=== PATIENT | female | born 1950 | race Caucasian/White ===

== ENCOUNTER 2023-05-06 06:43 | Day surgery (SDC) | payer MEDICARE, OTHER ==
--- NOTE | 2023-05-05 13:32 | HP ---
DATE OF SURGERY: 05/06/2023 HISTORY OF PRESENT ILLNESS: The patient is a 72-year-old female presents with epigastric pain. She also has possible cecal lesion. She has been having some constipation. She had a small bowel follow through that is where they may have seen some lesion at the cecum. She presents for endoscopy. PAST MEDICAL HISTORY: Anxiety. Depression. Gastroesophageal reflux disease. Hypertension. PAST SURGICAL HISTORY: Cataract. Sinus. Skin cancer. Total abdominal hysterectomy bilateral salpingo-oophorectomy. ALLERGIES: PER THE CHART. MEDICATIONS: Xanax, carvedilol, aspirin, Tricor, Dexilant. FAMILY HISTORY: None reported. SOCIAL HISTORY: None reported. REVIEW OF SYSTEMS: CONSTITUTIONAL: Denies fever or chills. CHEST: Denies shortness of breath. CVS: Denies chest pain. ABDOMEN: Denies abdominal pain. PHYSICAL EXAMINATION: GENERAL: No acute distress. CHEST: Nonlabored. No shortness of breath. CVS: Regular rate and rhythm. ABDOMEN: Soft. IMPRESSION: Abnormal small bowel follow through with possible cecal lesion and epigastric pain. PLAN: EGD and colonoscopy with Dr. Richmond Reene. As dictated by Cande Murrieta NP.
[2023-05-06] MEDS ORDERED: Lactated Ringers 1,000 ML IV SCH (07:00)
[2023-05-06] MEDS ORDERED: Lactated Ringers 1,000 ML IV ONE (07:21)
[2023-05-06 07:23] VITALS: O2SAT 100
[2023-05-06] MEDS ORDERED: Xylocaine-Mpf 2% 5 Ml Vial ONE (08:59)
[2023-05-06] MEDS ORDERED: Versed 2 MG/2 ML Injection ONE (08:59)
[2023-05-06] MEDS ORDERED: DIPRIVAN 200 MG/20 ML IV ONE (08:59)
[2023-05-06] MEDS ORDERED: Zofran 4 MG/2 ML VIAL ONE (09:01)
[2023-05-06 10:19] VITALS: BP 142/75; PULSE 47
--- NOTE | 2023-05-06 11:01 | OP ---
SURGERY DATE/TIME: 05/06/2023 0905 PREOPERATIVE DIAGNOSES: 1) Anemia. 2) Epigastric pain. POSTOPERATIVE DIAGNOSES: 1) Grade 2 gastroesophageal reflux disease. 2) Mild acute gastritis. 3) She had a normal ascending colon and cecum. 4) She had severe sigmoid diverticulosis. 5) She had moderate internal hemorrhoids. 6) She had no mucosal lesions. PROCEDURES: 1) EGD with cold biopsy. 2) Colonoscopy complete to cecum with no biopsy. SURGEON: Richmond Renee M.D. ANESTHESIA: MAC. COMPLICATIONS: None. CONDITION: Stable. DESCRIPTION OF PROCEDURE: Taken to endoscopy. MAC sedation. Time out performed. Scope introduced. Pharyngoesophageal junction normal. Esophagus normal down to gastroesophageal junction. Grade 2 over 4 gastroesophageal reflux disease. No hiatal hernia. Fundus, body and antrum acute gastritis mild. Cold biopsy of antrum. Pylorus normal. Duodenal bulb normal. Second portion normal. Scope looped upon itself normal. Scope withdrawn. Anal digital examination satisfactory. Scope advanced to the cecum. The ascending colon and cecum was fairly long. It was well defined. Appendiceal orifice was normal. Ileocecal valve was normal. Base of cecum normal. Ascending colon normal. There was a small bowel follow through that had suggested there might be a lesion over on this side that clearly is not. Great care and patience and time was spent on this area. Hepatic flexure, transverse colon, descending colon normal. There is severe sigmoid diverticulosis. Rectum satisfactory. Anus moderate hemorrhoids. The patient tolerated the procedure satisfactory. Follow up in five years.
== END 2023-05-06 10:49 | disposition home or self-care (01) ==
LOC: SDC 06:43
PROVIDERS: ATTEND Surgery
DX: K21.9 Gastro-esophageal reflux disease without esophagitis (principal); D64.9 Anemia, unspecified; R10.13 Epigastric pain; K29.70 Gastritis, unspecified, without bleeding; K57.30 Diverticulosis of large intestine without perforation or abscess without bleeding; K64.8 Other hemorrhoids; Z85.828 Personal history of other malignant neoplasm of skin
CPT/HCPCS: 99100; J2250; J2405; J2704

== ENCOUNTER 2023-11-01 09:14 | Emergency (ER) | payer MEDICARE, OTHER ==
[2023-11-01] MEDS ORDERED: Sodium Chloride 0.9% 1000 ML 1,000 ML IV SCH (09:30)
[2023-11-01] MEDS ORDERED: Sodium Chloride 0.9% 1000 ML 1,000 ML ONE (10:07)
[2023-11-01 10:10] VITALS: TEMP 98.2
--- NOTE | 2023-11-01 10:19 | XRAY ---
Indication: Hematuria. Frequent and painful urination. Multiple contiguous axial images obtained through the abdomen and pelvis without contrast using renal stone protocol. Comparison: April 19, 2014. Lung bases not demonstrates minimal fibrosis/scarring. No infiltrate or effusion. Heart not enlarged. No renal calculus or evidence for obstructive uropathy in either system. Stable left mid renal cortical scarring with new underlying punctate calcification. Stable left extrarenal pelvis. Noncontrasted stomach and bowel loops are nonobstructed. There is now mild diffuse scattered colonic fecal debris throughout including rectum. Again scattered descending and sigmoid diverticulosis without diverticulitis. Interval cholecystectomy with stable hysterectomy. No free fluid/air. Remaining liver, pancreas, spleen, adrenal glands, kidneys, ureters, and bladder are unremarkable for noncontrast exam. Worsening mild scattered arteriosclerotic calcifications with stable 9 mm calcified splenic artery aneurysm. No AAA. Osseous structures intact with osteopenia and mild degenerative changes throughout thoracolumbar spine and both hips. Impression: 1. Continued negative renal calculus or evidence for obstructive uropathy. 2. New mild diffuse fecal stasis. 3. Chronic findings including left renal cortical scarring with punctate calcification, colonic diverticulosis, arteriosclerotic disease with small calcified splenic artery aneurysm, and chronic bony findings.
[2023-11-01 10:24] LABS: Absolute Neutrophil Ct (ANC) 4.94 x10^3/uL (1.4-6.9); BASOPHIL % 0.3 % (0.0-0.4); Basophil (Absolute #) 0.02 x10^3/uL (0-0.4); Eosinophil % 0.5 % (0.00-5.0); Eosinophil (Absolute #) 0.03 x10^3/uL (0-0.5); Hematocrit 37.6 % (35-47); Hemoglobin 12.3 g/dL (12.0-16.0); IMMATURE GRAN # 0.02 x10^3u/L (0.00-0.03); IMMATURE GRAN % 0.3 % (0.00-0.4); Lymphocyte (Absolute #) 0.69 x10^3/uL (1.0-4.6); Mean Cell Volume 93.5 fL (78-100); Mean Corpuscular Hemoglobin 30.6 pg (26-32); Mean Corpuscular Hgb Concent. 32.7 g/dL (32-36); Mean Platelet Volume 10.2 fL (7.5-11.0); Monocyte (Absolute #) 0.55 x10^3/uL (0.0-1.3); Monocytes % 8.8 % (0.0-12.0); Neutrophil % 79.1 % (36.0-66.0); Platelet Count 167 x10^3/uL (150-450); Red Blood Count 4.02 x10^6/uL (4.1-5.4); Red Cell Distribution Width 12.6 % (11.5-14.0); White Blood Count 6.3 x10^3/uL (4.0-10.5)
[2023-11-01 10:25] VITALS: RESP 16
[2023-11-01 10:36] LABS: ALBUMIN 4.3 g/dL (3.5-5.0); ANION GAP 10.5 MEQ/L (5-15); BILIRUBIN,TOTAL 0.7 mg/dL (0.2-1.3); Calcium 9.4 mg/dL (8.4-10.2); Creatinine 1 0.62 mg/dL (0.52-1.04); EST GLOMERULAR FILTRATION RATE 94.6 ML/MIN; Potassium 3.8 mmol/L (3.5-5.1); Total Protein 7.3 g/dL (6.3-8.2)
[2023-11-01 10:39] LABS: INR 1.05 (0.8-3.0); PROTIME 11.4 SECONDS (9.4-12.5); PTT 27.8 SECONDS (25.1-36.5)
--- NOTE | 2023-11-01 10:58 | ERPHSYRPT ---
- History of Present Illness Time Seen by Provider: 11/01/23 10:53 Source: patient Exam Limitations: no limitations Patient Subjective Stated Complaint: Pt states "I woke up this morning and had to pee and when I did it was pure blood." Triage Nursing Assessment: Pt presented alert and oriented X 3, skin pwd. Pt ambulates with an upright steady gait, able to speak in clear full sentences. Pt resting comfortably on the bed. Physician History: Patient is a 72-year-old white female very pleasant who presents with a com plaint of gross hematuria present when she awoke this morning. She did have pain with the passage of clots but at the present time is fairly comfortable and the bleeding seems to be decreasing. There is no history of any genitourinary problems in the past. Timing/Duration: today Activites at Onset: none Quality: pressure Severity of Pain-Max: moderate Severity of Pain-Current: none Prior abdominal problems: none Allergies/Adverse Reactions: amlodipine Allergy (Unknown, Verified 05/06/23 07:09) atorvastatin [From Lipitor] Allergy (Unknown, Verified 05/06/23 07:09) ciprofloxacin [From Cipro] Allergy (Unknown, Verified 05/06/23 07:09) dicyclomine Allergy (Unknown, Verified 05/06/23 07:09) erythromycin base Allergy (Unknown, Verified 05/06/23 07:09) isosorbide [From Imdur] Allergy (Unknown, Verified 05/06/23 07:09) naproxen [From Aleve] Allergy (Unknown, Verified 05/06/23 07:09) niacin Allergy (Unknown, Verified 05/06/23 07:09) Home Medications: Aspirin 81 mg PO DAILY 04/19/14 [History] Fenofibrate Nanocrystallized [Tricor] 48 mg PO DAILY 04/19/14 [History] ALPRAZolam 0.25 MG [xanAX 0.25 MG] 0.25 mg PO HS 04/22/23 [History] Carvedilol 3.125 mg [Coreg 3.125 MG] 6.25 mg PO BID 04/22/23 [History] Nitroglycerin 0.4 mg Tablet [Nitrostat 0.4 MG Tablet] 0.4 mg PO DAILY PRN PRN 04/22/23 [History] Sertraline HCl 50 mg [Zoloft 50 mg Tablet] 12.5 mg PO DAILY 04/22/23 [History] Sucralfate 1 gm [Carafate 1 GM] 1 tab PO UD 04/22/23 [History] polyethylene glycoL 3350 [Miralax Powder] 1 dose PO DAILY PRN PRN 04/22/23 [History] Dexlansoprazole [Dexilant] 60 mg PO DAILY 05/06/23 [History] Hx Tetanus, Diphtheria Vaccination/Date Given: Yes Hx Influenza Vaccination/Date Given: No Hx Pneumococcal Vaccination/Date Given: No Travel Risk - International Travel Have you traveled outside of the country in past 3 weeks: No - Coronavirus Screening Are you exhibiting any of the following symptoms?: No Close contact with a COVID-19 positive Pt in past 14-21 Days: No - Vaccine Status Have you recieved a Covid-19 vaccination: Yes 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[employer] - Vaccination Dates Date of 2cond Vaccination (if applicable): 2020 - Review of Systems Constitutional: No Fever, No Chills Eyes: No Symptoms Ears, Nose, & Throat: No Symptoms Respiratory: No Cough, No Dyspnea Cardiac: No Chest Pain, No Edema, No Syncope Abdominal/Gastrointestinal: No Abdominal Pain, No Nausea, No Vomiting, No Diarrhea Genitourinary Symptoms: Frequency, Hematuria, No Dysuria Musculoskeletal: No Back Pain, No Neck Pain Skin: No Rash Neurological: No Dizziness, No Focal Weakness, No Sensory Changes Psychological: No Symptoms Endocrine: No Symptoms All Other Systems: Reviewed and Negative - Past Medical History Pertinent Past Medical History: Yes Neurological History: No Pertinent History ENT History: No Pertinent History Cardiac History: Coronary Artery Disease, High Cholesterol, Hypertension Respiratory History: No Pertinent History Endocrine Medical History: No Pertinent History Musculoskeletal History: No Pertinent History GI Medical History: GERD Psycho-Social History: Anxiety Female Reproductive Disorders: No Pertinent History - Past Surgical History Past Surgical History: Yes Neuro Surgical History: No Pertinent History Cardiac: No Pertinent History Respiratory: No Pertinent History Gastrointestinal: Cholecystectomy Genitourinary: No Pertinent History Female Surgical History: Hysterectomy Other Surgical History: CYSTOCELE LEFT LYMPH NODE REMOVED - Social History Smoking Status: Never smoker Exposure to second hand smoke: No Drug Use: none Patient Lives Alone: No - Nursing Vital Signs Nursing Vital Signs: Initial Vital Signs Temperature 98.2 F 11/01/23 09:25 Pulse Rate 61 11/01/23 09:25 Respiratory Rate 20 11/01/23 09:25 Blood Pressure 182/95 11/01/23 09:25 O2 Sat by Pulse Oximetry 100 11/01/23 09:25 Pain Scale Pain Intensity 5 - Physical Exam General Appearance: mild distress, alert Eye Exam: PERRL/EOMI, eyes nml inspection Ears, Nose, Throat Exam: normal ENT inspection, TMs normal, pharynx normal, moist mucous membranes Neck Exam: normal inspection, non-tender, supple, full range of motion Respiratory Exam: normal breath sounds, lungs clear, No respiratory distress Cardiovascular Exam: regular rate/rhythm, normal heart sounds, normal peripheral pulses Gastrointestinal/Abdomen Exam: soft, No tenderness, No mass Back Exam: normal inspection, normal range of motion, No CVA tenderness, No vertebral tenderness Extremity Exam: normal inspection, normal range of motion, pelvis stable Neurologic Exam: alert, oriented x 3, 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, 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, normal mood/affect, sensation nml, No motor deficits Skin Exam: normal color, warm, dry Lymphatic Exam: No adenopathy SpO2: 98 - Course Nursing assessment & vital signs reviewed: Yes - CT Exams Abdomen/Pelvis CT Interpretation: Negative Ordered Tests: Active Orders 24 hr Category Date Time Status IV Insertion STAT Care 11/01/23 09:27 Active ABDOMEN AND PELVIS W/0 CONTRAS [CT] Stat Exams 11/01/23 09:28 Completed AMYLASE Stat Lab 11/01/23 10:20 Completed CBC W DIFF Stat Lab 11/01/23 10:20 Completed CMP Stat Lab 11/01/23 10:20 Completed LIPASE Stat Lab 11/01/23 10:20 Completed Lactic Acid Stat Lab 11/01/23 10:18 Completed PROTIME WITH INR Stat Lab 11/01/23 10:20 Completed PTT Stat Lab 11/01/23 10:20 Completed UA W/RFX UR CULTURE Stat Lab 11/01/23 09:42 Received Medication Summary Generic Name Dose Route Start Last Admin Trade Name Freq PRN Reason Stop Dose Admin Sodium Chloride 1,000 mls @ 100 mls/hr 11/01/23 09:30 11/01/23 10:09 Sodium Chloride 0.9% 1000 Ml IV 12/01/23 09:29 100 mls/hr .Q10H ANASTASIIA Administration Lab/Rad Data: Laboratory Result Diagrams 11/01/23 10:20 11/01/23 10:20 Laboratory Results 11/01/23 11/01/23 11/01/23 Range/Units 10:20 10:20 10:20 WBC 6.3 (4.0-10.5) x10^3/uL RBC 4.02 L (4.1-5.4) x10^6/uL Hgb 12.3 (12.0-16.0) g/dL Hct 37.6 (35-47) % MCV 93.5 (78-100) fL MCH 30.6 (26-32) pg MCHC 32.7 (32-36) g/dL RDW 12.6 (11.5-14.0) % Plt Count 167 (150-450) x10^3/uL MPV 10.2 (7.5-11.0) fL Gran % 79.1 H (36.0-66.0) % Immature Gran % (Auto) 0.3 (0.00-0.4) % Nucleat RBC Rel Count 0.0 (0.00-0.1) % Eos # (Auto) 0.03 (0-0.5) x10^3/uL Immature Gran # (Auto) 0.02 (0.00-0.03) x10^3u/L Absolute Lymphs (auto) 0.69 L (1.0-4.6) x10^3/uL Absolute Monos (auto) 0.55 (0.0-1.3) x10^3/uL Absolute Nucleated RBC 0.00 (0.00-0.01) x10^3u/L Lymphocytes % 11.0 L (24.0-44.0) % Monocytes % 8.8 (0.0-12.0) % Eosinophils % 0.5 (0.00-5.0) % Basophils % 0.3 (0.0-0.4) % Absolute Granulocytes 4.94 (1.4-6.9) x10^3/uL Basophils # 0.02 (0-0.4) x10^3/uL PT 11.4 (9.4-12.5) SECONDS INR 1.05 (0.8-3.0) APTT 27.8 (25.1-36.5) SECONDS Sodium 135 L (137-145) mmol/L Potassium 3.8 (3.5-5.1) mmol/L Chloride 101 (98-107) mmol/L Carbon Dioxide 28 (22-30) mmol/L Anion Gap 10.5 (5-15) MEQ/L BUN 19 H (7-17) mg/dL Creatinine 0.62 (0.52-1.04) mg/dL Estimated GFR 94.6 ML/MIN Glucose 90 (74-106) mg/dL Lactic Acid (0.4-2.0) Calcium 9.4 (8.4-10.2) mg/dL Total Bilirubin 0.70 (0.2-1.3) mg/dL AST 36 (14-36) U/L ALT 24 (0-35) U/L Alkaline Phosphatase 75 (38-126) U/L Serum Total Protein 7.3 (6.3-8.2) g/dL Albumin 4.3 (3.5-5.0) g/dL Amylase 109 (30-110) U/L Lipase 266 (23-300) U/L 11/01/23 Range/Units 10:18 WBC (4.0-10.5) x10^3/uL RBC (4.1-5.4) x10^6/uL Hgb (12.0-16.0) g/dL Hct (35-47) % MCV (78-100) fL MCH (26-32) pg MCHC (32-36) g/dL RDW (11.5-14.0) % Plt Count (150-450) x10^3/uL MPV (7.5-11.0) fL Gran % (36.0-66.0) % Immature Gran % (Auto) (0.00-0.4) % Nucleat RBC Rel Count (0.00-0.1) % Eos # (Auto) (0-0.5) x10^3/uL Immature Gran # (Auto) (0.00-0.03) x10^3u/L Absolute Lymphs (auto) (1.0-4.6) x10^3/uL Absolute Monos (auto) (0.0-1.3) x10^3/uL Absolute Nucleated RBC (0.00-0.01) x10^3u/L Lymphocytes % (24.0-44.0) % Monocytes % (0.0-12.0) % Eosinophils % (0.00-5.0) % Basophils % (0.0-0.4) % Absolute Granulocytes (1.4-6.9) x10^3/uL Basophils # (0-0.4) x10^3/uL PT (9.4-12.5) SECONDS INR (0.8-3.0) APTT (25.1-36.5) SECONDS Sodium (137-145) mmol/L Potassium (3.5-5.1) mmol/L Chloride (98-107) mmol/L Carbon Dioxide (22-30) mmol/L Anion Gap (5-15) MEQ/L BUN (7-17) mg/dL Creatinine (0.52-1.04) mg/dL Estimated GFR ML/MIN Glucose (74-106) mg/dL Lactic Acid 0.5 (0.4-2.0) Calcium (8.4-10.2) mg/dL Total Bilirubin (0.2-1.3) mg/dL AST (14-36) U/L ALT (0-35) U/L Alkaline Phosphatase (38-126) U/L Serum Total Protein (6.3-8.2) g/dL Albumin (3.5-5.0) g/dL Amylase (30-110) U/L Lipase (23-300) U/L - Progress Progress: improved Air Movement: good Progress Note: 11/01/23 10:57 After workup failed to reveal an exact cause for her gross hematuria we discus sed it with her she wants to see her primary care physician and let that physician arrange referral for her to urology. Blood Culture(s) Obtained: No Antibiotics given: No Counseled pt/family regarding: lab results, rad results Medical Desision Making - Diagnostic Testing Diagnostic test were ordered, analyzed, and reviewed by me: Yes Radiological Interpretation: Reviewed by me - Risk of complications Low Risk: Low risk of morbidity from additional dx testing or treatment - Departure Departure Disposition: Home Clinical Impression: Gross hematuria Condition: Stable Critical Care Time: No Referrals: RUBI GRAHAM [Primary Care Provider] - Follow up/PCP as directed Instructions: Blood in the urine (hematuria) in adults
[2023-11-01 11:05] VITALS: BP 144/73; PULSE 52; O2SAT 96
[2023-11-01 11:08] LABS: Appearance Turbid (Clear); Bacteria None Seen /HPF (None Seen); Bilirubin Large (Negative); Blood Moderate (Negative); Epithelial Cells Rare /HPF (None Seen); Glucose, Urine Negative (Negative); Hyaline Casts NONE SEEN /LPF (0-2); Leukocyte Esterase Large (Negative); Nitrite Positive (Negative); Ph 6.5 (4.6-8.0); Protein,Urine Dip 100 (Negative); Urobilinogen 0.2 mg/dL (0.2); WBC >100 /HPF (0-5)
[2023-11-01 11:18] LABS: RBC >100 /HPF (0-5)
[2023-11-01 11:19] LABS: ADD URINE CULTURE? YES (NO)
== END 2023-11-01 11:10 | disposition home or self-care (01) ==
LOC: ED 09:14
DX: R31.0 Gross hematuria (principal); E78.5 Hyperlipidemia, unspecified; I10 Essential (primary) hypertension; Z79.899 Other long term (current) drug therapy
CPT/HCPCS: 36415; 74176; 80053; 81001; 82150; 83605; 83690; 85025; 85610; 85730; 87077; 87086; 87186; 99284

== ENCOUNTER 2024-03-09 10:46 | Emergency (ER) | payer MEDICARE, OTHER ==
[2024-03-09 11:04] VITALS: TEMP 96.8
--- NOTE | 2024-03-09 11:05 | ERPHSYRPT ---
- History of Present Illness Time Seen by Provider: 03/09/24 11:05 Source: patient, family, EMS, old records Exam Limitations: no limitations Patient Subjective Stated Complaint: Syncope Triage Nursing Assessment: Patient brought into ED per EMS and transferred to bed with assist of 2. Patient A +O X 3. Patient's skin pink, warm and dry. Patient states prior to coming to ED she had a syncopal episode but did not lose consciousness or hit head. Patient states she has been dizzy and nauseated since yesterday when she started a Zpack for a tooth. Patient denies pain or discomfort. Physician History: This is a cachectic appearing 73-year-old white female patient who was brought to the emergency department by the ambulance service because of a syncopal episode. Patient denies hitting her head. Patient states she felt dizzy yesterday and has been nauseated over the last couple days secondary to being placed on a Z-Jairon to treat a dental infection. Today, she actually was dizzy and fell somewhat to the ground. Patient does have a history of coronary artery disease, hypertension, anxiety issues, hyperlipidemia and gastroesophageal reflux disease. She is on a beta-justin. She has known history of sinus b radycardia. She also has noticed the left occipital region of her scalp has been somewhat tender intermittently over the last couple of weeks. She has never had a syncopal episode in the past per her report. She does not have chest pain. She is not short of breath. She has no abdominal pain. She has had chronic weight loss secondary to epigastric abdominal pain after eating so she states that she is on pured and bland foods. She is scheduled for an upper and lower endoscopy in approximately 1 week's time. Witnessed: by family Prior Episodes: single episode today Timing/Duration: yesterday Precipitating Factors: unknown, other (She had associated nausea) Context: standing Loss of Consciousness: no loss of consciousness Charcter of event(s): felt faint Allergies/Adverse Reactions: amlodipine Allergy (Unknown, Verified 03/09/24 10:50) atorvastatin [From Lipitor] Allergy (Unknown, Verified 03/09/24 10:50) ciprofloxacin [From Cipro] Allergy (Unknown, Verified 03/09/24 10:50) dicyclomine Allergy (Unknown, Verified 03/09/24 10:50) erythromycin base Allergy (Unknown, Verified 03/09/24 10:50) isosorbide [From Imdur] Allergy (Unknown, Verified 03/09/24 10:50) naproxen [From Aleve] Allergy (Unknown, Verified 03/09/24 10:50) niacin Allergy (Unknown, Verified 03/09/24 10:50) nitrofurantoin [From Macrobid] Allergy (Verified 03/09/24 10:51) azithromycin Adverse Reaction (Verified 03/09/24 10:52) Patient states dizziness Home Medications: Aspirin 81 mg PO DAILY 04/19/14 [History] Fenofibrate Nanocrystallized [Tricor] 48 mg PO DAILY 04/19/14 [History] ALPRAZolam 0.25 MG [xanAX 0.25 MG] 0.25 mg PO HS 04/22/23 [History] Carvedilol 3.125 mg [Coreg 3.125 MG] 6.25 mg PO BID 04/22/23 [History] Nitroglycerin 0.4 mg Tablet [Nitrostat 0.4 MG Tablet] 0.4 mg PO DAILY PRN PRN 04/22/23 [History] Sertraline HCl 50 mg [Zoloft 50 mg Tablet] 12.5 mg PO DAILY 04/22/23 [History] Sucralfate 1 gm [Carafate 1 GM] 1 tab PO UD 04/22/23 [History] polyethylene glycoL 3350 [Miralax Powder] 1 dose PO DAILY PRN PRN 04/22/23 [History] Dexlansoprazole [Dexilant] 60 mg PO DAILY 05/06/23 [History] Hx Tetanus, Diphtheria Vaccination/Date Given: Yes Hx Influenza Vaccination/Date Given: Yes Hx Pneumococcal Vaccination/Date Given: Yes Immunizations Up to Date: Yes Travel Risk - International Travel Have you traveled outside of the country in past 3 weeks: No - Emerging Infectious Disease Are you exhibiting symptoms associated with any current EIDs: No - Past Medical History Pertinent Past Medical History: Yes Neurological History: No Pertinent History ENT History: No Pertinent History Cardiac History: Coronary Artery Disease, High Cholesterol, Hypertension Respiratory History: No Pertinent History Endocrine Medical History: No Pertinent History Musculoskeletal History: No Pertinent History GI Medical History: GERD Psycho-Social History: Anxiety Female Reproductive Disorders: No Pertinent History - Past Surgical History Past Surgical History: Yes Neuro Surgical History: No Pertinent History Cardiac: No Pertinent History Respiratory: No Pertinent History Gastrointestinal: Cholecystectomy Genitourinary: No Pertinent History Female Surgical History: Hysterectomy Other Surgical History: CYSTOCELE LEFT LYMPH NODE REMOVED - Social History Smoking Status: Never smoker Exposure to second hand smoke: No Drug Use: none Patient Lives Alone: No - Review of Systems Constitutional: Weakness Eyes: No Symptoms Ears, Nose, & Throat: No Symptoms Respiratory: No Symptoms Cardiac: No Symptoms Abdominal/Gastrointestinal: No Symptoms Genitourinary Symptoms: No Symptoms Musculoskeletal: No Symptoms Skin: No Symptoms Neurological: Dizziness Psychological: No Symptoms Endocrine: No Symptoms Hematologic/Lymphatic: No Symptoms Immunological/Allergic: No Symptoms All Other Systems: Reviewed and Negative Physical Exam - Nursing Vital Signs Nursing Vital Signs: Initial Vital Signs Temperature 96.8 F 03/09/24 10:52 Pulse Rate 55 L 03/09/24 10:52 Respiratory Rate 14 03/09/24 10:52 Blood Pressure 130/77 03/09/24 10:52 O2 Sat by Pulse Oximetry 99 03/09/24 10:52 Pain Scale Pain Intensity 0 - Sonia Coma Scale Best Eye Response ([place]): (4) open spontaneously Best Verbal Response ([place]): (5) oriented Best Motor Response ([place]): (6) obeys commands Sonia Total: 15 - Physical Exam General Appearance: no apparent distress, alert, anxiety, cachetic Eye Exam: bilateral eye: normal inspection, PERRL, EOMI Ears, Nose, Throat Exam: normal ENT inspection, moist mucous membranes Neck Exam: normal inspection, non-tender, supple, full range of motion Respiratory: normal breath sounds, lungs clear, airway intact, No chest tenderness, No respiratory distress Cardiovascular: bradycardia Gastrointestinal: soft, normal bowel sounds, No tenderness Pelvic Exam: not done Rectal Exam: not done Back Exam: normal inspection, normal range of motion, No CVA tenderness, No vertebral tenderness Extremity Exam: normal inspection, normal range of motion, pelvis stable Mental Status: alert, 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 No comparison twelve-lead EKG available) Ordered Tests: Active Orders 24 hr Category Date Time Status EKG-ER Only STAT Care 03/09/24 11:17 Active IV Insertion STAT Care 03/09/24 11:17 Active Pulse Oximetry (ED) STAT Care 03/09/24 11:17 Active HEAD WITHOUT CONTRAST [CT] Stat Exams 03/09/24 11:21 Completed CBC W DIFF Stat Lab 03/09/24 11:45 Completed CMP Stat Lab 03/09/24 11:45 Completed MAGNESIUM Stat Lab 03/09/24 11:45 Completed TROPONIN Q4H Lab 03/09/24 11:45 Completed TROPONIN Q4H Lab 03/09/24 15:30 Ordered TROPONIN Q4H Lab 03/09/24 19:30 Ordered TSH, 3RD Generation Stat Lab 03/09/24 11:45 Completed UA W/RFX UR CULTURE Stat Lab 03/09/24 11:25 Completed Medication Summary Generic Name Dose Route Start Last Admin Trade Name Freq PRN Reason Stop Dose Admin Sodium Chloride 1,000 mls @ 100 mls/hr 03/09/24 11:30 03/09/24 11:27 Sodium Chloride 0.9% 1000 Ml IV 04/08/24 11:29 100 mls/hr .Q10H ANASTASIIA Administration Lab/Rad Data: Laboratory Result Diagrams 03/09/24 11:45 03/09/24 11:45 Laboratory Results 03/09/24 03/09/24 03/09/24 Range/Units 11:45 11:45 11:45 WBC (4.0-10.5) x10^3/uL RBC (4.1-5.4) x10^6/uL Hgb (12.0-16.0) g/dL Hct (35-47) % MCV (78-100) fL MCH (26-32) pg MCHC (32-36) g/dL RDW (11.5-14.0) % Plt Count (150-450) x10^3/uL MPV (7.5-11.0) fL Gran % (36.0-66.0) % Immature Gran % (Auto) (0.00-0.4) % Nucleat RBC Rel Count (0.00-0.1) % Eos # (Auto) (0-0.5) x10^3/uL Immature Gran # (Auto) (0.00-0.03) x10^3u/L Absolute Lymphs (auto) (1.0-4.6) x10^3/uL Absolute Monos (auto) (0.0-1.3) x10^3/uL Absolute Nucleated RBC (0.00-0.01) x10^3u/L Lymphocytes % (24.0-44.0) % Monocytes % (0.0-12.0) % Eosinophils % (0.00-5.0) % Basophils % (0.0-0.4) % Absolute Granulocytes (1.4-6.9) x10^3/uL Basophils # (0-0.4) x10^3/uL Sodium 130 L (135-145) mmol/L Potassium 3.8 (3.5-5.1) mmol/L Chloride 103 (98-107) mmol/L Carbon Dioxide 20 L (22-30) mmol/L Anion Gap 11.7 (5-15) MEQ/L BUN 14 (7-17) mg/dL Creatinine 0.60 (0.52-1.04) mg/dL Estimated GFR 94.7 ML/MIN Glucose 106 (74-106) mg/dL Calcium 9.0 (8.4-10.2) mg/dL Magnesium 1.7 (1.6-2.3) mg/dL Total Bilirubin 0.20 (0.2-1.3) mg/dL AST 33 (14-36) U/L ALT 20 (0-35) U/L Alkaline Phosphatase 57 (38-126) U/L Troponin I < 0.012 (0.000-0.033) ng/mL Serum Total Protein 6.4 (6.3-8.2) g/dL Albumin 3.7 (3.5-5.0) g/dL Free T4 1.33 (0.78-2.19) ng/dL TSH 3rd Generation 1.380 (0.470-4.680) mIU/L Urine Color (Yellow) Urine Appearance (Clear) Urine pH (4.6-8.0) Ur Specific [place] (1.005-1.030) Urine Protein (Negative) Urine Glucose (UA) (Negative) mg/dL Urine Ketones (Negative) Urine Blood (Negative) Urine Nitrite (Negative) Urine Bilirubin (Negative) Urine Urobilinogen (0.2) mg/dL Ur Leukocyte Esterase (Negative) U Hyaline Cast (Auto) (0-2) /LPF Urine Microscopic RBC (0-5) /HPF Urine Microscopic WBC (0-5) /HPF Ur Epithelial Cells (None Seen) /HPF Urine Bacteria (None Seen) /HPF Urine Culture Reflexed (NO) 03/09/24 03/09/24 Range/Units 11:45 11:25 WBC 3.1 L (4.0-10.5) x10^3/uL RBC 3.63 L (4.1-5.4) x10^6/uL Hgb 11.1 L (12.0-16.0) g/dL Hct 32.7 L (35-47) % MCV 90.1 (78-100) fL MCH 30.6 (26-32) pg MCHC 33.9 (32-36) g/dL RDW 12.9 (11.5-14.0) % Plt Count 183 (150-450) x10^3/uL MPV 10.2 (7.5-11.0) fL Gran % 64.9 (36.0-66.0) % Immature Gran % (Auto) 0.3 (0.00-0.4) % Nucleat RBC Rel Count 0.0 (0.00-0.1) % Eos # (Auto) 0.02 (0-0.5) x10^3/uL Immature Gran # (Auto) 0.01 (0.00-0.03) x10^3u/L Absolute Lymphs (auto) 0.71 L (1.0-4.6) x10^3/uL Absolute Monos (auto) 0.34 (0.0-1.3) x10^3/uL Absolute Nucleated RBC 0.00 (0.00-0.01) x10^3u/L Lymphocytes % 22.9 L (24.0-44.0) % Monocytes % 11.0 (0.0-12.0) % Eosinophils % 0.6 (0.00-5.0) % Basophils % 0.3 (0.0-0.4) % Absolute Granulocytes 2.01 (1.4-6.9) x10^3/uL Basophils # 0.01 (0-0.4) x10^3/uL Sodium (135-145) mmol/L Potassium (3.5-5.1) mmol/L Chloride (98-107) mmol/L Carbon Dioxide (22-30) mmol/L Anion Gap (5-15) MEQ/L BUN (7-17) mg/dL Creatinine (0.52-1.04) mg/dL Estimated GFR ML/MIN Glucose (74-106) mg/dL Calcium (8.4-10.2) mg/dL Magnesium (1.6-2.3) mg/dL Total Bilirubin (0.2-1.3) mg/dL AST (14-36) U/L ALT (0-35) U/L Alkaline Phosphatase (38-126) U/L Troponin I (0.000-0.033) ng/mL Serum Total Protein (6.3-8.2) g/dL Albumin (3.5-5.0) g/dL Free T4 (0.78-2.19) ng/dL TSH 3rd Generation (0.470-4.680) mIU/L Urine Color Yellow (Yellow) Urine Appearance Clear (Clear) Urine pH 7.5 (4.6-8.0) Ur Specific [place] 1.015 (1.005-1.030) Urine Protein Negative (Negative) Urine Glucose (UA) Negative (Negative) mg/dL Urine Ketones Negative (Negative) Urine Blood Negative (Negative) Urine Nitrite Negative (Negative) Urine Bilirubin Negative (Negative) Urine Urobilinogen 0.2 (0.2) mg/dL Ur Leukocyte Esterase Trace A (Negative) U Hyaline Cast (Auto) 0-2 (0-2) /LPF Urine Microscopic RBC 3-5 (0-5) /HPF Urine Microscopic WBC 3-5 (0-5) /HPF Ur Epithelial Cells Few (None Seen) /HPF Urine Bacteria None Seen (None Seen) /HPF Urine Culture Reflexed NO (NO) - Progress Progress: improved, re-examined Progress Note: 03/09/24 11:31 My medical decision making and the assignment of moderate complexity to this patient's medical issue today is based on review of the patient's past medical history, review of patient's medication list, review of the patient's drug allergy list, history present illness and physical findings on examination. The workup in this patient includes placement of intravenous line, infusion of normal saline solution, urinalysis, twelve-lead EKG, troponin level, magnesium level, free T4 level, TSH level, CT scan of the head without contrast. The differential diagnosis includes intracranial abnormality, medication related bradycardia causing syncope, urinary tract infection, electrolyte abnormalities, dehydration 03/09/24 12:[address] scan of the head without contrast was interpreted by the radiologist and I reviewed the impression. The impression states nonacute senile brain. 03/09/24 12:40 I interpreted the patient's laboratory data results. The patient has mild leukopenia, mild anemia and mild hyponatremia. Patient has no acute or emergent medical issues at this time. I think her sinus bradycardia might be secondary to her prescription of beta-justin. Her heart rate was 49 bpm and a sinus bradycardia rhythm. She may have dropped lower than this at home. I will have her stop her beta-justin. She will contact her prescribing physician and make changes accordingly. She will contact them today. Counseled pt/family regarding: lab results, diagnosis, need for follow-up, rad results Medical Desision Making - Diagnostic Testing Diagnostic test were ordered, analyzed, and reviewed by me: Yes Radiological Interpretation: Reviewed by me, Teleradiologist Report - Risk of complications Low Risk: Low risk of morbidity from additional dx testing or treatment - Departure Departure Disposition: Home Clinical Impression: Episode of syncope, Sinus bradycardia, Leukopenia, Anemia, Hyponatremia Condition: Stable Critical Care Time: No Referrals: RUBI GRAHAM [Primary Care Provider] - Follow up/PCP as directed Additional Instructions: Drink plenty of fluids. Stop your Coreg until you speak with your prescribing provider. Continue your other medications as prescribed. Call your prescribing provider today, 03/09/2024 to make arranges for follow-up appointment and to obtain further instructions regarding your medications.
[2024-03-09] MEDS ORDERED: Sodium Chloride 0.9% 1000 ML 1,000 ML ONE (11:25)
[2024-03-09] MEDS: Sodium Chloride 0.9% 1000 ML 1,000 ML IV SCH (11:27)
[2024-03-09 11:50] LABS: Absolute Neutrophil Ct (ANC) 2.01 x10^3/uL (1.4-6.9); BASOPHIL % 0.3 % (0.0-0.4); Basophil (Absolute #) 0.01 x10^3/uL (0-0.4); Eosinophil % 0.6 % (0.00-5.0); Eosinophil (Absolute #) 0.02 x10^3/uL (0-0.5); Hematocrit 32.7 % (35-47); Hemoglobin 11.1 g/dL (12.0-16.0); IMMATURE GRAN # 0.01 x10^3u/L (0.00-0.03); IMMATURE GRAN % 0.3 % (0.00-0.4); Lymphocyte (Absolute #) 0.71 x10^3/uL (1.0-4.6); Lymphocytes % 22.9 % (24.0-44.0); Mean Cell Volume 90.1 fL (78-100); Mean Corpuscular Hemoglobin 30.6 pg (26-32); Mean Corpuscular Hgb Concent. 33.9 g/dL (32-36); Mean Platelet Volume 10.2 fL (7.5-11.0); Monocyte (Absolute #) 0.34 x10^3/uL (0.0-1.3); Neutrophil % 64.9 % (36.0-66.0); Platelet Count 183 x10^3/uL (150-450); Red Blood Count 3.63 x10^6/uL (4.1-5.4); Red Cell Distribution Width 12.9 % (11.5-14.0); White Blood Count 3.1 x10^3/uL (4.0-10.5)
--- NOTE | 2024-03-09 12:04 | XRAY ---
Indication: Syncope. Multiple contiguous axial images obtained through the head without contrast. Comparison: None Age-appropriate global atrophy and mild periventricular degenerative micro-ischemia bilaterally. No acute intracranial hemorrhage, abnormal extra-axial fluid collection, or mass effect. Fourth ventricle is midline without hydrocephalus. Bony calvarium intact. Visualized paranasal sinuses and mastoid air cells are clear. Impression: Nonacute senile brain.
[2024-03-09 12:34] LABS: Appearance Clear (Clear); Bacteria None Seen /HPF (None Seen); Bilirubin Negative (Negative); Blood Negative (Negative); Epithelial Cells Few /HPF (None Seen); Glucose, Urine Negative (Negative); Hyaline Casts 0-2 /LPF (0-2); Ketones Negative (Negative); Leukocyte Esterase Trace (Negative); Nitrite Negative (Negative); Ph 7.5 (4.6-8.0); Protein,Urine Dip Negative (Negative); Specific Gravity 1.015 (1.005-1.030); Urobilinogen 0.2 mg/dL (0.2)
[2024-03-09 12:35] LABS: ADD URINE CULTURE? NO (NO)
[2024-03-09 12:35] LABS: ALBUMIN 3.7 g/dL (3.5-5.0); ANION GAP 11.7 MEQ/L (5-15); BILIRUBIN,TOTAL 0.2 mg/dL (0.2-1.3); Creatinine 1 0.6 mg/dL (0.52-1.04); EST GLOMERULAR FILTRATION RATE 94.7 ML/MIN; MAGNESIUM 1.7 mg/dL (1.6-2.3); Potassium 3.8 mmol/L (3.5-5.1); Total Protein 6.4 g/dL (6.3-8.2)
[2024-03-09 12:37] LABS: TSH, 3RD Generation 1.38 mIU/L (0.470-4.680)
[2024-03-09 12:43] VITALS: BP 144/72; O2SAT 99
[2024-03-09 13:08] VITALS: PULSE 56; RESP 26
== END 2024-03-09 13:52 | disposition home or self-care (01) ==
LOC: ED 10:46
DX: R55 Syncope and collapse (principal); R00.1 Bradycardia, unspecified; D72.819 Decreased white blood cell count, unspecified; D64.9 Anemia, unspecified; E87.1 Hypo-osmolality and hyponatremia; E78.5 Hyperlipidemia, unspecified; I10 Essential (primary) hypertension; Z79.899 Other long term (current) drug therapy
CPT/HCPCS: 36415; 70450; 80053; 81001; 83735; 84439; 84443; 84484; 85025; 93005; 94760; 99284

== ENCOUNTER 2025-03-10 21:42 | Emergency (ER) | payer MEDICARE, OTHER ==
--- NOTE | 2025-03-10 22:41 | ERPHSYRPT ---
- History of Present Illness Source: patient Exam Limitations: no limitations Physician History: Patient has symptoms of being lightheaded and a little bit weak. About 2 days ago she had significant diarrhea and vomiting. She said she had multiple episodes of each. She is not having abdominal pain. She has no fever or chills. She has been little bit nauseated lately but has not had any more Vomiting. She has not had any chest pain. She is not syncopal. She has no shortness of breath. She has no neurological deficits. She think she may be dehydrated or volume depleted. She says whenever she stands and exerts herself she gets little bit more lightheaded.She has a history of having a heart attack in the past. She has a stent. Actually about 1 to 2 weeks ago she had a stress test done which showed really no acute concerning abnormalities according to her she is meeting with her beam doffer to discuss the results in a couple days. Allergies/Adverse Reactions: amlodipine Allergy (Unknown, Verified 03/09/24 10:50) atorvastatin [From Lipitor] Allergy (Unknown, Verified 03/09/24 10:50) ciprofloxacin [From Cipro] Allergy (Unknown, Verified 03/09/24 10:50) dicyclomine Allergy (Unknown, Verified 03/09/24 10:50) erythromycin base Allergy (Unknown, Verified 03/09/24 10:50) isosorbide [From Imdur] Allergy (Unknown, Verified 03/09/24 10:50) naproxen [From Aleve] Allergy (Unknown, Verified 03/09/24 10:50) niacin Allergy (Unknown, Verified 03/09/24 10:50) nitrofurantoin [From Macrobid] Allergy (Verified 03/09/24 10:51) azithromycin Adverse Reaction (Verified 03/09/24 10:52) Patient states dizziness Home Medications: Aspirin 81 mg PO DAILY 04/19/14 [History] Fenofibrate Nanocrystallized [Tricor] 48 mg PO DAILY 04/19/14 [History] ALPRAZolam 0.25 MG [xanAX 0.25 MG] 0.25 mg PO HS 04/22/23 [History] Carvedilol 3.125 mg [Coreg 3.125 MG] 6.25 mg PO BID 04/22/23 [History] Nitroglycerin 0.4 mg Tablet [Nitrostat 0.4 MG Tablet] 0.4 mg PO DAILY PRN PRN 04/22/23 [History] Sertraline HCl 50 mg [Zoloft 50 mg Tablet] 12.5 mg PO DAILY 04/22/23 [History] Sucralfate 1 gm [Carafate 1 GM] 1 tab PO UD 04/22/23 [History] polyethylene glycoL 3350 [Miralax Powder] 1 dose PO DAILY PRN PRN 04/22/23 [History] Dexlansoprazole [Dexilant] 60 mg PO DAILY 05/06/23 [History] Hx Tetanus, Diphtheria Vaccination/Date Given: Yes Hx Influenza Vaccination/Date Given: Yes Hx Pneumococcal Vaccination/Date Given: Yes Travel Risk - Emerging Infectious Disease Are you exhibiting symptoms associated with any current EIDs: No - Review of Systems Constitutional: Fatigue Eyes: No Symptoms Ears, Nose, & Throat: No Symptoms Respiratory: No Symptoms Abdominal/Gastrointestinal: No Symptoms All Other Systems: Reviewed and Negative - Past Medical History Pertinent Past Medical History: Yes Neurological History: No Pertinent History ENT History: No Pertinent History Cardiac History: Coronary Artery Disease, High Cholesterol, Hypertension Respiratory History: No Pertinent History Endocrine Medical History: No Pertinent History Musculoskeletal History: No Pertinent History GI Medical History: GERD Psycho-Social History: Anxiety Female Reproductive Disorders: No Pertinent History - Past Surgical History Past Surgical History: Yes Neuro Surgical History: No Pertinent History Cardiac: No Pertinent History Respiratory: No Pertinent History Gastrointestinal: Cholecystectomy Genitourinary: No Pertinent History Female Surgical History: Hysterectomy Other Surgical History: CYSTOCELE LEFT LYMPH NODE REMOVED - Social History Smoking Status: Never smoker Exposure to second hand smoke: No Drug Use: none Patient Lives Alone: No - Social Determinants of Health Will the patient participate in the screening: Yes Do you worry about a steady place to live?: No In the past 12 months,have you had to go without utilities?: No Transportation Issues: No Has anyone in your support network made you feel unsafe?: No Have you or anyone in your house had to go w/o enough food: No - Nursing Vital Signs Nursing Vital Signs: Initial Vital Signs Pulse Rate 56 L 03/10/25 22:30 Respiratory Rate 17 03/10/25 22:30 Blood Pressure 166/93 03/10/25 22:30 O2 Sat by Pulse Oximetry 99 03/10/25 22:30 Pain Scale Pain Intensity 0 - Physical Exam General Appearance: no apparent distress Eye Exam: PERRL/EOMI Respiratory Exam: normal breath sounds, lungs clear Cardiovascular Exam: regular rate/rhythm, normal heart sounds Gastrointestinal/Abdomen Exam: soft, normal bowel sounds, No tenderness Neurologic Exam: alert, oriented x 3 Skin Exam: normal color, warm - Course Nursing assessment & vital signs reviewed: Yes EKG Interpreted by Me: RATE, Sinus Rhythm, NORMAL AXIS, NORMAL INTERVALS, NORMAL QRS, Non-specific ST Changes Ordered Tests: Active Orders 24 hr Category Date Time Status EKG-ER Only STAT Care 03/10/25 23:50 Active CBC W DIFF Stat Lab 03/10/25 22:40 Completed CMP Stat Lab 03/10/25 22:40 Completed MAG [MAGNESIUM] Stat Lab 03/10/25 22:40 Completed PT INR [PROTIME WITH INR] Stat Lab 03/11/25 00:00 Completed PTT Stat Lab 03/11/25 00:00 Completed TROPONIN Q4H Lab 03/10/25 22:30 Completed TROPONIN Q4H Lab 03/11/25 01:39 Completed TROPONIN Q4H Lab 03/11/25 07:15 Ordered Medication Summary Discontinued Medications Generic Name Dose Route Start Last Admin Trade Name Ino PRN Reason Stop Dose Admin Sodium Chloride 1,000 mls @ 999 mls/hr 03/10/25 22:49 03/10/25 23:52 Sodium Chloride 0.9% 1000 Ml IV 03/10/25 23:49 Infused .Q1H1M STA Infusion Sodium Chloride Confirm 03/10/25 22:50 Sodium Chloride 0.9% 1000 Ml Administered 03/10/25 22:51 Dose 1,000 mls @ ud .ROUTE .STK-MED ONE Lab/Rad Data: Laboratory Result Diagrams 03/10/25 22:40 03/10/25 22:40 Laboratory Results 03/11/25 03/11/25 03/10/25 Range/Units 01:39 00:00 22:40 WBC (3.98-10.04) x10^3/uL RBC (3.93-5.22) x10^6/uL Hgb (11.2-15.7) g/dL Hct (34.1-44.9) % MCV (79.4-94.8) fL MCH (25.6-32.2) pg MCHC (32.2-35.5) g/dL RDW (11.7-14.4) % Plt Count (182-369) x10^3/uL MPV (9.4-12.3) fL Gran % (34.0-71.1) % Immature Gran % (Auto) (0.001-0.429) % Nucleat RBC Rel Count (0.00-0.2) % Eos # (Auto) (0.04-0.36) x10^3/uL Immature Gran # (Auto) (0.001-0.031) x10^3u/L Absolute Lymphs (auto) (1.18-3.74) x10^3/uL Absolute Monos (auto) (0.24-0.86) x10^3/uL Absolute Nucleated RBC (0.00-0.012) x10^3u/L Lymphocytes % (19.3-51.7) % Monocytes % (4.7-12.5) % Eosinophils % (0.7-5.8) % Basophils % (0.1-1.2) % Absolute Granulocytes (1.56-6.13) x10^3/uL Basophils # (0.01-0.08) x10^3/uL PT 10.7 (9.4-12.5) SECONDS INR 0.98 (0.8-3.0) APTT 25.6 (25.1-36.5) SECONDS Sodium 125 L (135-145) mmol/L Potassium 4.0 (3.5-5.1) mmol/L Chloride 86 L (98-107) mmol/L Carbon Dioxide 30 (22-30) mmol/L Anion Gap 12.3 (5-15) MEQ/L BUN 26 H (7-17) mg/dL Creatinine 0.92 (0.52-1.04) mg/dL Estimated GFR 65.3 ML/MIN Glucose 102 (74-106) mg/dL Calcium 9.4 (8.4-10.2) mg/dL Magnesium 1.9 (1.6-2.3) mg/dL Total Bilirubin 0.90 (0.2-1.3) mg/dL AST 48 H (14-36) U/L ALT 21 (0-35) U/L Alkaline Phosphatase 76 (38-126) U/L Troponin I 0.213 H* (0.000-0.033) ng/mL Serum Total Protein 7.5 (6.3-8.2) g/dL Albumin 4.8 (3.5-5.0) g/dL 03/10/25 03/10/25 Range/Units 22:40 22:30 WBC 3.8 L (3.98-10.04) x10^3/uL RBC 3.94 (3.93-5.22) x10^6/uL Hgb 12.0 (11.2-15.7) g/dL Hct 34.2 (34.1-44.9) % MCV 86.8 (79.4-94.8) fL MCH 30.5 (25.6-32.2) pg MCHC 35.1 (32.2-35.5) g/dL RDW 12.6 (11.7-14.4) % Plt Count 199 (182-369) x10^3/uL MPV 10.3 (9.4-12.3) fL Gran % 56.5 (34.0-71.1) % Immature Gran % (Auto) 0.0 L (0.001-0.429) % Nucleat RBC Rel Count 0.0 (0.00-0.2) % Eos # (Auto) 0.05 (0.04-0.36) x10^3/uL Immature Gran # (Auto) 0.00 L (0.001-0.031) x10^3u/L Absolute Lymphs (auto) 0.99 L (1.18-3.74) x10^3/uL Absolute Monos (auto) 0.59 (0.24-0.86) x10^3/uL Absolute Nucleated RBC 0.00 (0.00-0.012) x10^3u/L Lymphocytes % 26.3 (19.3-51.7) % Monocytes % 15.6 H (4.7-12.5) % Eosinophils % 1.3 (0.7-5.8) % Basophils % 0.3 (0.1-1.2) % Absolute Granulocytes 2.13 (1.56-6.13) x10^3/uL Basophils # 0.01 (0.01-0.08) x10^3/uL PT (9.4-12.5) SECONDS INR (0.8-3.0) APTT (25.1-36.5) SECONDS Sodium (135-145) mmol/L Potassium (3.5-5.1) mmol/L Chloride (98-107) mmol/L Carbon Dioxide (22-30) mmol/L Anion Gap (5-15) MEQ/L BUN (7-17) mg/dL Creatinine (0.52-1.04) mg/dL Estimated GFR ML/MIN Glucose (74-106) mg/dL Calcium (8.4-10.2) mg/dL Magnesium (1.6-2.3) mg/dL Total Bilirubin (0.2-1.3) mg/dL AST (14-36) U/L ALT (0-35) U/L Alkaline Phosphatase (38-126) U/L Troponin I 0.206 H* (0.000-0.033) ng/mL Serum Total Protein (6.3-8.2) g/dL Albumin (3.5-5.0) g/dL - Progress Progress: unchanged Progress Note: On the differential was dehydration, electrolyte abnormality, cardiac event, viral illness. An EKG was done as interpreted by me. There were some nonspecific ST changes. There is a little bit of mild elevation laterally. The patient was not having any chest pain. I got a troponin and it was elevated. The rest of her lab values were within normal limits. She did get a liter of fluids.We repeated an EKG. It showed no acute ST or T changes. We are going to repeat a troponin. She is not having Chest pain. I am going to call her beam doffer after the results come back 03/11/25 00:14 03/11/25 00:19 03/11/25 01:49 Medical Desision Making - Diagnostic Testing Diagnostic test were ordered, analyzed, and reviewed by me: Yes - Risk of complications Minimal Risk: Minimal risk of morbidity - Departure Departure Disposition: Home Clinical Impression: Volume depletion Condition: Stable Critical Care Time: No Referrals: RUBI GRAHAM [Primary Care Provider] - Follow up/PCP as directed Instructions: Hypovolemia in adults
[2025-03-10 22:43] LABS: Absolute Neutrophil Ct (ANC) 2.13 x10^3/uL (1.56-6.13); BASOPHIL % 0.3 % (0.1-1.2); Basophil (Absolute #) 0.01 x10^3/uL (0.01-0.08); Eosinophil % 1.3 % (0.7-5.8); Eosinophil (Absolute #) 0.05 x10^3/uL (0.04-0.36); Hematocrit 34.2 % (34.1-44.9); Lymphocyte (Absolute #) 0.99 x10^3/uL (1.18-3.74); Lymphocytes % 26.3 % (19.3-51.7); Mean Cell Volume 86.8 fL (79.4-94.8); Mean Corpuscular Hemoglobin 30.5 pg (25.6-32.2); Mean Corpuscular Hgb Concent. 35.1 g/dL (32.2-35.5); Mean Platelet Volume 10.3 fL (9.4-12.3); Monocyte (Absolute #) 0.59 x10^3/uL (0.24-0.86); Monocytes % 15.6 % (4.7-12.5); Neutrophil % 56.5 % (34.0-71.1); Platelet Count 199 x10^3/uL (182-369); Red Blood Count 3.94 x10^6/uL (3.93-5.22); Red Cell Distribution Width 12.6 % (11.7-14.4); White Blood Count 3.8 x10^3/uL (3.98-10.04)
[2025-03-10] MEDS ORDERED: Sodium Chloride 0.9% 1000 ML 1,000 ML ONE (22:50)
[2025-03-10 22:51] LABS: ALBUMIN 4.8 g/dL (3.5-5.0); ANION GAP 12.3 MEQ/L (5-15); BILIRUBIN,TOTAL 0.9 mg/dL (0.2-1.3); Calcium 9.4 mg/dL (8.4-10.2); Creatinine 1 0.92 mg/dL (0.52-1.04); EST GLOMERULAR FILTRATION RATE 65.3 ML/MIN; MAGNESIUM 1.9 mg/dL (1.6-2.3); Total Protein 7.5 g/dL (6.3-8.2)
[2025-03-10] MEDS: Sodium Chloride 0.9% 1000 ML 1,000 ML IV STA (22:52)
[2025-03-11 00:27] LABS: INR 0.98 (0.8-3.0); PROTIME 10.7 SECONDS (9.4-12.5); PTT 25.6 SECONDS (25.1-36.5)
[2025-03-11 00:32] VITALS: O2SAT 99
[2025-03-11 03:20] VITALS: BP 134/71; PULSE 61; RESP 17
== END 2025-03-11 03:31 | disposition home or self-care (01) ==
LOC: ED 21:42
DX: E86.9 Volume depletion, unspecified (principal); R42 Dizziness and giddiness; E78.5 Hyperlipidemia, unspecified; I10 Essential (primary) hypertension; Z79.899 Other long term (current) drug therapy
CPT/HCPCS: 36415; 80053; 83735; 84484; 85025; 85610; 85730; 93005; 96360; 99284